=== PATIENT | female | born 2005 | race Caucasian/White ===

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

== ENCOUNTER 2025-01-06 20:34 | Emergency (ER) | payer MEDICAID ==
[2025-01-06] MEDS: diphenhydrAMINE 50 MG/ML SDV IVPUSH ONE (21:45)
[2025-01-06] MEDS: Ketorolac 15 MG/ML SDV IVPUSH ONE (21:45)
[2025-01-06] MEDS: Sodium Chloride 0.9% 10 ML Syringe FLUSH PRN (21:45)
[2025-01-06 22:12] VITALS: BP 120/56; PULSE 75
== END 2025-01-06 22:49 | disposition home or self-care (01) ==
LOC: JP.ED 20:34
DX: G43.909 Migraine, unspecified, not intractable, without status migrainosus (principal)
CPT/HCPCS: 96361; 96374; 96375; 99283; J1200; J1885; J2765; J7030